=== PATIENT | male | born 1980 | race Caucasian/White ===

== ENCOUNTER → 2016-07-03 | Outpatient (CLI) | payer BC ==
--- NOTE | 2016-07-04 15:50 | MR ---
EXAM DATE: 07/03/16 PATIENT'S AGE: 36 Patient: MANSOOR JAIME Facility: [place], [place] Site . Site : 1980 Study: MRI Spine Cervical [id number]/27/2017 8:29:24 PM Ordering Physician: Nathaniel Rosas Final Report: Indication: Neck pain. Comparison: None. Technique: Sagittal T1, T2 and STIR sequences. Axial T2 and gradient sequences. Findings: Normal vertebral body facet alignment. No fractures. No vertebral body loss of height. No spondylolisthesis. No ligamentous injury. Normal marrow signal. No suspicious osseous lesions. Normal cord signal. C2-3: No spinal canal or neural foraminal narrowing. C3-4: Posterior disk bulge with no narrowing of spinal canal. No neural foraminal narrowing. C4-5: Posterior disc bulge. No narrowing of spinal canal. No neural foraminal narrowing. C5-6: Disc degeneration with posterior disc bulge. No narrowing of spinal canal. No neural foraminal narrowing. C6-7: Disc degeneration with loss of disc height. Posterior disc bulge or disc osteophyte complex. Effacement of the ventral thecal sac. Mild narrowing of spinal canal. Uncovertebral facet joint hypertrophy results in mild right and moderate left neural foraminal narrowing. Impingement of the exiting left C7 nerve root. C7-T1: Disc degeneration with posterior disc bulge. Otherwise, no spinal canal or neural foraminal narrowing. No spinal canal or neural foraminal narrowing in the visualized upper thoracic spine. Impression: 1. Normal alignment. No fractures. No spondylolisthesis. 2. Normal cord signal. 3. At C6-7, disk degeneration with posterior disk bulge with disk osteophyte complex. Mild narrowing of the spinal canal. Mild right and moderate left neural foraminal narrowing. Impingement of the exiting left C7 nerve root. 4. No spinal canal or neural foraminal narrowing at the remaining levels Dictated by Francesco Burk MD @ Jul 04 2016 8:17AM (Electronic Signature) Report Signed by Proxy and Original Signed Document filed in the Medical Record. [facility]ALTH[facility]
== END ==
LOC: MW.MRI 18:12
PROVIDERS: ATTEND Orthopaedic Surgery
DX: M54.2 Cervicalgia (principal); M53.82 Other specified dorsopathies, cervical region
CPT/HCPCS: 72141; 72141-26

== ENCOUNTER 2016-07-26 08:06 | Day surgery (SDC) | payer BC ==
[~2016-07-26 08:06] MED LIST: Ketorolac 30 MG/ML SDV ONE; Lactated Ringers 1,000 ML IV SCH; Lidocaine 2% 5 ML SDV ONE; Midazolam 1 MG/ML 2 ML SDV ONE; Ondansetron 4 MG/2 ML SDV ONE; Propofol 200 MG/20 ML SDV ONE; ceFAZolin 2 GM in Premix Bag 1 BAG IV SCH; fentaNYL 250 MCG/5 ML SDV ONE
--- NOTE | 2016-07-26 09:58 | PCM.PREANE ---
Preanesthetic Assessment - Anesthesia/Transfusion/Family Hx Anesthesia History: Prior Anesthesia Without Reaction Family History of Anesthesia Reaction: No Transfusion History: No Prior Transfusion(s) - Review of Systems General: No Symptoms Pulmonary: No Symptoms Cardiovascular: No Symptoms Gastrointestinal: No symptoms Neurological: No Symptoms Other: Reports: None - Physical Assessment NPO Status Date: 07/25/16 Height: 1.75 m Weight: 86.183 kg ASA Class: 2 Mental Status: Alert & Oriented x3 Dentition: Reports: Normal Dentition ROM/Head Extension: Full Lungs: Clear to auscultation, Normal respiratory effort Cardiovascular: Regular Rate, Regular Rhythm - Allergies Allergies/Adverse Reactions: Allergies Allergy/AdvReac Type Severity Reaction Status Date / Time No Known Allergies Allergy Verified 05/04/14 10:05 - Acknowledgements Anesthesia Type Planned: General Anesthesia Pt an Appropriate Candidate for the Planned Anesthesia: Yes Alternatives and Risks of Anesthesia Discussed w Pt/Guardian: Yes Pt/Guardian Understands and Agrees with Anesthesia Plan: Yes PreAnesthesia Questionnaire Respiratory History: Reports: Other (see below) Other Respiratory History: SOB on occasion, has inhaler, denies asthma or any diagnosed lung disease Gastrointestinal History: Reports: None Musculoskeletal History: Reports: Arthritis - Past Surgical History Head Surgeries/Procedures: Reports: None GI Surgical History: Reports: Hernia repair/other Other GI Surgeries/Procedures: inguinal hernia repair x2 - SUBSTANCE USE Smoking Status *Q: Former Smoker Recreational Drug Use History: No - HOME MEDS Home Medications: Home Meds Albuterol Sulfate [Proair Hfa] 1 - 2 puff IH ASDIRECTED PRN 07/24/16 [History] Diclofenac Sodium [Voltaren] 1 tab PO BID PRN 07/24/16 [History] Glucosamine [Glucosamine Sulfate] 500 mg PO DAILY 07/24/16 [History] Multivitamin [Multivitamins] 1 tab PO DAILY 07/24/16 [History] - CURRENT (IN HOUSE) MEDS Current Meds: Current Medications Acetaminophen/Hydrocodone Bitart ([place] 325-5 Mg) 1 - 2 tab PO Q4H PRN PRN Reason: Pain Lactated Ringer's (Ringers, Lactated) 1,000 mls @ 100 mls/hr IV ASDIRECTED FACUNDO Last Admin: 07/26/16 08:38 Dose: 100 mls/hr Cefazolin Sodium/Dextrose 2 gm (/ Premix) 50 mls @ 100 mls/hr IV ONCALL FACUNDO Discontinued Medications Fentanyl (Sublimaze) Confirm Administered Dose 250 mcg .ROUTE .STK-MED ONE Stop: 07/26/16 07:30 Ketorolac Tromethamine (Toradol) Confirm Administered Dose 30 mg .ROUTE .STK- MED ONE Stop: 07/26/16 07:34 Lidocaine (Xylocaine-Mpf 2%) Confirm Administered Dose 10 ml .ROUTE .STK-MED ONE Stop: 07/26/16 07:29 Midazolam HCl (Versed 1 Mg/Ml) Confirm Administered Dose 2 mg .ROUTE .STK-MED ONE Stop: 07/26/16 07:29 Ondansetron HCl (Zofran) Confirm Administered Dose 4 mg .ROUTE .STK-MED ONE Stop: 07/26/16 07:34 Propofol (Diprivan 20 Ml) Confirm Administered Dose 400 mg .ROUTE .STK-MED ONE Stop: 07/26/16 07:29 Preanesthetic Assessment - ANESTHESIA/TRANSFUSION/FAMILY HX Family History of Anesthesia Reaction: No - PHYSICAL ASSESSMENT Height: 1.75 m Weight: 86.183 kg - ALLERGIES Allergies/Adverse Reactions: Allergies Allergy/AdvReac Type Severity Reaction Status Date / Time No Known Allergies Allergy Verified 05/04/14 10:05
[2016-07-26] MEDS ORDERED: Acetaminophen/HYDROcodone 325-5 MG Tab PO PRN (10:00)
[2016-07-26] MEDS ORDERED: Lidocaine 1% 50 ML MDV ONE (10:14)
[2016-07-26] MEDS ORDERED: fentaNYL 100 MCG/2 ML SDV IVPUSH PRN (11:28)
--- NOTE | 2016-07-26 11:46 | PCM.OPNOTE ---
- General Post-Op/Procedure Note Date of Surgery/Procedure: 07/26/16 Operative Procedure(s): right knee diagnostic arthroscopy, debridement of partial ACL tear and chondroplasty of patella Anesthesia Technique: General LMA Primary Surgeon: Alison Armstrong Furnace Reliner: Hanna Johnston Furnace Reliner: Shaye Shi EBL in mLs: 5 Drain/Tube Comments:: tourniquet time: 16 minutes Condition: Good
--- NOTE | 2016-07-26 12:18 | PCM.POSTAN ---
POST ANESTHESIA ASSESSMENT - MENTAL STATUS Mental Status: alert, oriented - RESPIRATORY Respiratory Status: respiratory rate WNL, airway patent, O2 saturation stable - CARDIOVASCULAR CV Status: pulse rate WNL, blood pressure stable - GASTROINTESTINAL GI Status: no symptoms - PAIN Pain Score: 2 - POST OP HYDRATION Hydration Status: adequate & stable - OBSERVATIONS Free Text/Narrative:: Pt stable with minimal pain.
--- NOTE | 2016-07-26 12:49 | OR ---
SURGEON: Alison Armstrong MD DATE OF PROCEDURE: 07/26/2016 PREOPERATIVE DIAGNOSIS: Right knee partial anterior cruciate ligament tear. POSTOPERATIVE DIAGNOSES: 1. Right knee partial anterior cruciate ligament tear. 2. Right knee patellar chondromalacia. PROCEDURE: Right knee arthroscopy with debridement of partial anterior cruciate ligament tear and chondroplasty of the patella. TOWN MANAGER: 1. Hanna Johnston MD, PGY-2. 2. Shaye Shi PA-C. ANESTHESIA: General. ESTIMATED BLOOD LOSS: 5 mL. TOURNIQUET TIME: 18 minutes. COMPLICATIONS: None. DVT PROPHYLAXIS: Not indicated. IMPLANTS USED: None. BRIEF HISTORY: Ash is a 36-year-old male, who has had complaint of persistent right knee pain. He did have an MRI, which did show a questionable partial tear of the ACL. He did respond to a diagnostic injection, however, his pain did recur. Due to his lack of response to conservative treatment, I did recommend surgical intervention. The risks and goals of the procedure were discussed with the patient and were documented preoperatively. He agreed to proceed. DESCRIPTION OF PROCEDURE: The patient was properly identified and brought to the operating room. He was transferred from the OR cart and placed on the operating table in a supine position. General anesthesia was administered. After adequate anesthesia was obtained, he was taken through a range of motion. He did have full range of motion. He was stable to varus and valgus stressing. He had a negative pivot- shift test. The right lower extremity was then prepped in standard fashion using ChloraPrep solution. It was then sterilely draped. A time-out was performed to ensure correct site and procedure. Preoperative antibiotics were given. The surgical site had been marked preoperatively. A lateral portal arthrotomy was established. Blunt trocar and cannula were introduced into the suprapatellar pouch. Camera, inflow, and outflow were assembled. No significant synovitis was noted. The patellofemoral joint was then visualized. There was evidence of grade 2 to grade 3 chondromalacia along the central portion of the patella. This appeared to contact the trochlear groove at approximately 30 degrees of flexion. The trochlear groove did not show any degenerative findings. I then extended down the lateral gutter. No loose bodies were identified. The medial gutter showed no loose bodies as well. I then entered the medial compartment. A medial portal arthrotomy was established. A blunt probe was inserted. The meniscus was probed and found to be stable. The joint surfaces showed diffuse grade 2 chondromalacia along the medial tibial plateau. The medial femoral condyle showed grade 1 chondromalacia only. I then entered the notch. There was evidence of a partial ACL tear. Some of the anterior fibers appeared to be catching within the lateral joint space. A shaver was used to resect the torn portion of the ACL. The ACL was then probed. It was found to have good attachment to the lateral femoral condyle. Majority of the ACL remained intact. The PCL was also probed and found to be stable. I then entered the lateral compartment. There was a deep fissure which appeared to be full thickness along the lateral aspect of the lateral tibial plateau. This was probed and no loose cartilage fragments were found. The meniscus was extensively probed and was found to be stable. The lateral femoral condyle showed no significant degenerative findings. I then re-entered the patellofemoral joint. The area of chondromalacia was probed. There was found to be loose cartilaginous pieces. A shaver was then used to perform a chondroplasty to bring the chondromalacia to a stable remnant. It was again probed and found to be stable. The instruments were then removed from the knee. The portal sites were closed with 3-0 nylon. Xeroform gauze was placed over the wound and a bulky dressing was applied. Tourniquet was then deflated. He was awakened from his anesthetic and transferred back to the operating room cart. He was brought to recovery room in stable condition. All needle and sponge counts were correct. Tourniquet was deflated upon placement of the dressing. AUTUMN / LISETH /[id number]
--- NOTE | 2016-07-26 13:36 | PCM48HPAN ---
Post Anesthesia Note - EVALUATION WITHIN 48HRS OF ANESTHETIC Vital Signs in Normal Range: Yes Patient Participated in Evaluation: Yes Respiratory Function Stable: Yes Airway Patent: Yes Cardiovascular Function Stable: Yes Hydration Status Stable: Yes Pain Control Satisfactory: Yes Nausea and Vomiting Control Satisfactory: Yes Mental Status Recovered: Yes
[2016-07-26 13:49] VITALS: BP 102/62
== END 2016-07-26 14:40 | disposition home or self-care (01) ==
LOC: MW.SDS 08:06
PROVIDERS: ATTEND Orthopaedic Surgery
PROC: 0SJC4ZZ Inspection of Right Knee Joint, Percutaneous Endoscopic Approach (ICD-10-PCS; principal; 2016-07-26)
DX: S83.511A Sprain of anterior cruciate ligament of right knee, initial encounter (principal); M94.261 Chondromalacia, right knee; M94.8X6 Other specified disorders of cartilage, lower leg; J40 Bronchitis, not specified as acute or chronic; M17.11 Unilateral primary osteoarthritis, right knee; E78.1 Pure hyperglyceridemia; Z87.01 Personal history of pneumonia (recurrent); Z87.891 Personal history of nicotine dependence; Z79.899 Other long term (current) drug therapy; Z98.890 Other specified postprocedural states
CPT/HCPCS: 29877; 88304; A9270; J1885; J2250; J2405; J3010; J7120; 01400; J2704

== ENCOUNTER → 2016-09-05 | Outpatient (CLI) | payer BC ==
[2016-09-05 10:52] LABS: CHLORIDE,CL 108 mmol/L (98-110); SODIUM,NA 141 mmol/L (136-146)
== END ==
LOC: MW.CHORTHO 10:01
PROVIDERS: ATTEND Orthopaedic Surgery
DX: Z51.81 Encounter for therapeutic drug level monitoring (principal); Z79.1 Long term (current) use of non-steroidal anti-inflammatories (NSAID)
CPT/HCPCS: 36415; 80048